=== PATIENT | male | born 1990 | race American Indian/Alaskan Native ===

== ENCOUNTER 2017-03-27 14:59 | Emergency (ER) | payer SELFPAY ==
--- NOTE | 2017-03-27 15:41 | Emergency Department Report ---
Stated Complaint: KIDNEY PAIN Time Seen by Provider: 03/27/17 15:36 - HPI History of Present Illness: PT c/o genevieve back pain x 6 days. PT states his father has a hx of kidney stones - ROS Review of Systems: + hematuria + back pain + nausea - vomiting - Exam Physical Exam: PT looks well, non toxic. + R cva tenderness MSE screening note: Focused history and physical exam performed. Due to findings the following was ordered: labs ED Disposition for MSE Condition: Stable
[2017-03-27 16:25] LABS: Basophils % (Auto) 0.7 % (0.0-1.8); Eosinophils % (Auto) 1.9 % (0.0-4.3); Hematocrit 38.1 % (35.5-45.6); Mean Corpuscular HGB Conc 34 % (32-34); Mean Corpuscular Hemoglobin 29 pg (28-32); Mean Corpuscular Volume 86 fl (84-94); Platelet Count 224 K/mm3 (140-440); Red Blood Count 4.45 M/mm3 (3.65-5.03); Red Cell Distribution Width 12.9 % (13.2-15.2); White Blood Count 5.8 K/mm3 (4.5-11.0)
[2017-03-27 16:49] LABS: Bilirubin,Urine NEG (Negative); Blood,Urine NEG (Negative); Ketones,Urine NEG (Negative); Leukocyte Esterase,Urine SM (Negative); Nitrite,Urine NEG (Negative); Protein,Urine <15 mg/dL mg/dL (Negative); Urobilinogen,Urine < 2.0 mg/dL (<2.0)
[2017-03-27 16:49] LABS: Alanine Aminotransferase 19 units/L (7-56); Albumin 4.1 g/dL (3.9-5); Albumin/Globulin Ratio 1.1 %; Alkaline Phosphatase 51 units/L (35-129); Anion Gap 19 mmol/L; Blood Urea Nitrogen 8 mg/dL (9-20); Calcium 9.2 mg/dL (8.4-10.2); Carbon Dioxide 27 mmol/L (22-30); Chloride 99.8 mmol/L (98-107); Creatine Kinase 143 units/L (55-170); Glucose 111 mg/dL (75-100); Potassium 3.8 mmol/L (3.6-5.0); Sodium 142 mmol/L (137-145); Total Protein 7.9 g/dL (6.3-8.2)
--- NOTE | 2017-03-27 18:53 | Cat Scan Report ---
FINAL REPORT EXAM: CT ABDOMEN PELVIS WO CON HISTORY: R flank pain, increased rbc in ua TECHNIQUE: Helical CT scan through the abdomen and pelvis without contrast. Images are reconstructed in the sagittal and coronal planes. PRIORS: None. FINDINGS: Solid organ and bowel evaluation is limited without intravenous contrast. Bowel evaluation is limited without oral contrast. The lung bases are clear. The liver, gallbladder, pancreas, spleen and adrenal glands appear normal. The left kidney appears normal. The right kidney appears mildly swollen. There is no hydronephrosis or urolithiasis. There is a phlebolith in the left true pelvis. The pelvic organs appear grossly normal. The stomach appears grossly within normal limits. There are no abnormally dilated loops of bowel or acute inflammatory changes. There is mild sigmoid diverticulosis without evidence of acute diverticulitis. The abdominal aorta has a normal diameter. The bones and subcutaneous soft tissues are unremarkable for age. IMPRESSION: 1. The right kidney appears mildly swollen. This may be due to pyelonephritis. There is no hydronephrosis or urolithiasis. 2. Mild sigmoid diverticulosis without evidence of acute diverticulitis
[2017-03-27 21:42] VITALS: BP 123/76
[2017-03-27] MEDS ORDERED: ZOFRAN IV ONE (21:48)
[2017-03-27] MEDS ORDERED: MORPHINE IV ONE (21:48)
[2017-03-27] MEDS ORDERED: TORADOL IV ONE (21:49)
--- NOTE | 2017-03-27 21:59 | Emergency Department Report ---
HPI - General Chief Complaint: Urogenital-Male Time Seen by Provider: 03/27/17 15:36 - HPI HPI: [place] 27 The patient is a 26-year-old male presenting with a chief complaint of bilateral flank pain. The patient states his symptoms began 6 days ago with pain in bilateral flanks. Patient states he tried to drink more water to see if that would help but his pain did not change. Patient describes pain as sharp and burning in bilateral flanks and increases with any type of movement. Patient admits to nausea at one point but denies vomiting. Patient denies fever or dysuria. The patient states today he noticed a small amount of blood in his urine. The patient currently gives his pain a score of 9/10. 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 does not recall any precipitating events events leading to his back pain Location: Bilateral flank Duration: 6 days Quality: Sharp and burning Severity: 9/10 Modifying factors: [see above] Context: [see above] Mode of transportation: [not driving] ED Past Medical Hx - Past Medical History Previous Medical History?: No - Surgical History Past Surgical History?: No - Family History Family history: no significant - Social History Smoking Status: Current Every Day Smoker (1/3 pack per day) Substance Use Type: None (denies illicit drug use), Alcohol (occasional) - Medications Home Medications: Home Medications Medication Instructions Recorded Confirmed Last Taken Type Naphazoline HCl/Pheniramine 10 ml OP BID #1 bottle 02/12/15 Unknown Rx [Naphcon-A Eye Drops] Ciprofloxacin HCl [Ciprofloxacin 500 mg PO Q12H #14 tab 03/27/17 Unknown Rx TAB] Cyclobenzaprine [Flexeril] 10 mg PO TID PRN #20 tablet 03/27/17 Unknown Rx HYDROcodone/APAP 5-325 [[place] 1 - 2 each PO Q6HR PRN #10 tablet 03/27/17 Unknown Rx 5/325] Ibuprofen [Motrin 800 MG tab] 800 mg PO Q8HR PRN #20 tablet 03/27/17 Unknown Rx Promethazine [Phenergan TAB] 25 mg PO Q6HR PRN #20 tab 03/27/17 Unknown Rx ED Review of Systems ROS: Stated complaint: KIDNEY PAIN Other details as noted in HPI Comment: All other systems reviewed and negative Constitutional: denies: chills, fever Eyes: denies: eye pain, eye discharge, vision change ENT: denies: ear pain, throat pain Respiratory: denies: cough, shortness of breath, wheezing Cardiovascular: denies: chest pain, palpitations Endocrine: no symptoms reported Gastrointestinal: nausea. denies: vomiting Genitourinary: hematuria. denies: dysuria Musculoskeletal: back pain, myalgia Skin: denies: rash, lesions Neurological: denies: headache, weakness, paresthesias Psychiatric: denies: anxiety, depression Hematological/Lymphatic: denies: easy bleeding, easy bruising Physical Exam - Physical Exam Vital Signs: Vital Signs 03/27/17 03/27/17 03/27/17 15:35 21:36 21:42 Temperature 97.9 F 97.4 F L Pulse Rate 77 75 Respiratory 16 18 Rate Blood Pressure 133/64 123/76 O2 Sat by Pulse 100 Oximetry 03/27/17 21:45 Temperature Pulse Rate Respiratory 18 Rate Blood Pressure O2 Sat by Pulse 100 Oximetry Physical Exam: GENERAL: The patient is well-developed well-nourished male lying on stretcher not appearing to be in acute distress. [] HEENT: Normocephalic. Atraumatic. Extraocular motions are intact. Patient has moist mucous membranes. NECK: Supple. No meningitic signs are noted. Trachea midline CHEST/LUNGS: Clear to auscultation. There is no respiratory distress noted. HEART/CARDIOVASCULAR: Regular. There is no tachycardia. There is no gallop rub or murmur. ABDOMEN: Abdomen is soft, with diffuse discomfort to palpation. No rebound or guarding. Patient has normal bowel sounds. There is no abdominal distention. SKIN: There is no rash. There is no edema. There is no diaphoresis. NEURO: The patient is awake, alert, and oriented. The patient is cooperative. The patient has normal speech MUSCULOSKELETAL: There is no evidence of acute injury. There is tenderness along bilateral flanks. There is no axial step off ED Course Vital Signs 03/27/17 03/27/17 03/27/17 15:35 21:36 21:42 Temperature 97.9 F 97.4 F L Pulse Rate 77 75 Respiratory 16 18 Rate Blood Pressure 133/64 123/76 O2 Sat by Pulse 100 Oximetry 03/27/17 21:45 Temperature Pulse Rate Respiratory 18 Rate Blood Pressure O2 Sat by Pulse 100 Oximetry ED Medical Decision Making - Lab Data Result diagrams: 03/27/17 15:44 03/27/17 15:44 Laboratory Tests 03/27/17 03/27/17 03/27/17 15:44 15:44 16:26 WBC 5.8 RBC 4.45 Hgb 13.0 Hct 38.1 MCV 86 MCH 29 MCHC 34 RDW 12.9 L Plt Count 224 Lymph % (Auto) 28.6 Swain % (Auto) 12.7 H Eos % (Auto) 1.9 Baso % (Auto) 0.7 Lymph # 1.7 Swain # 0.7 Eos # 0.1 Baso # 0.0 Seg Neutrophils % 56.1 Seg Neutrophils # 3.2 Sodium 142 Potassium 3.8 Chloride 99.8 Carbon Dioxide 27 Anion Gap 19 BUN 8 L Creatinine 0.8 Estimated GFR > 60 BUN/Creatinine Ratio 10.00 Glucose 111 H Calcium 9.2 Total Bilirubin 0.30 AST 18 ALT 19 Alkaline Phosphatase 51 Total Creatine Kinase 143 Total Protein 7.9 Albumin 4.1 Albumin/Globulin Ratio 1.1 Urine Color Yellow Urine Turbidity Clear Urine pH 6.0 Ur Specific [place] 1.008 Urine Protein <15 mg/dl Urine Glucose (UA) Neg Urine Ketones Neg Urine Blood Neg Urine Nitrite Neg Urine Bilirubin Neg Urine Urobilinogen < 2.0 Ur Leukocyte Esterase Sm Urine WBC (Auto) 2.0 Urine RBC (Auto) 4.0 - Radiology Data Radiology results: report reviewed (CT abdomen and pelvis), image reviewed (CT abdomen and pelvis) CT abdomen and pelvis (read by radiologist) (-the right kidney appears mildly swollen. This may be due to pyelonephritis. There is no hydronephrosis or urolithiasis. All sigmoid diverticulosis without evidence of acute diverticulitis. There are no abnormally dilated loops of bowel or acute inflammatory changes. - Differential Diagnosis renal colic, pyelonephritis, rhabdomyolysis, lumbar radiculopathy, muscle s Critical care attestation.: If time is entered above; I have spent that time in minutes in the direct care of this critically ill patient, excluding procedure time. ED Disposition Clinical Impression: Back pain Disposition: DC-01 TO HOME OR SELFCARE Is pt being admited?: No Does the pt Need Aspirin: No Condition: Stable Additional Instructions: Return to the emergency department immediately should you develop worsening symptoms, fever, inability to tolerate food or liquid or any other concerns. Prescriptions: Ciprofloxacin HCl [Ciprofloxacin TAB] 500 mg PO Q12H #14 tab Cyclobenzaprine [Flexeril] 10 mg PO TID PRN #20 tablet PRN Reason: Muscle Spasm HYDROcodone/APAP 5-325 [[place] 5/325] 1 - 2 each PO Q6HR PRN #10 tablet PRN Reason: Pain Ibuprofen [Motrin 800 MG tab] 800 mg PO Q8HR PRN #20 tablet PRN Reason: Pain Promethazine [Phenergan TAB] 25 mg PO Q6HR PRN #20 tab PRN Reason: Nausea Referrals: DESTIN BOWIE MD [Staff Physician] - 3-5 Days PONCHO RODRIGUEZ MD [Staff Physician] - 3-5 Days Time of Disposition: 22:09
== END 2017-03-27 22:43 | disposition home or self-care (01) ==
LOC: ED 14:59
DX: M54.9 Dorsalgia, unspecified (principal); F17.200 Nicotine dependence, unspecified, uncomplicated; R10.9 Unspecified abdominal pain
CPT/HCPCS: 36415; 74176; 80053; 81001; 82550; 85025; 96374; 96375; 99284; J1885; J2270; J2405

== ENCOUNTER 2019-01-23 12:31 | Emergency (ER) | payer OTHER ==
[2019-01-23 12:52] VITALS: BP 131/72
--- NOTE | 2019-01-23 12:52 | Event Note ---
ED Screening Note Date of service: 01/23/19 Time: 12:51 ED Screening Note: 28 y/o male comes in for nausea/vomiting and diarrhea started this morning. This initial assessment/diagnostic orders/clinical plan/treatment(s) is/are subject to change based on patients health status, clinical progression and re- assessment by fellow clinical providers in the ED. Further treatment and workup at subsequent clinical providers discretion. Patient/guardian urged not to elope from the ED as their condition may be serious if not clinically assessed and managed. Initial orders include:
[2019-01-23] MEDS ORDERED: BENTYL IM ONE (14:12)
[2019-01-23] MEDS ORDERED: ZOFRAN IV ONE (14:12)
[2019-01-23] MEDS ORDERED: NACL 0.9% 1000 ML 1,000 ML IV ONE (14:12)
[2019-01-23] MEDS ORDERED: PROTONIX IV ONE (14:13)
--- NOTE | 2019-01-23 14:31 | Emergency Department Report ---
ED N/V/D HPI - General Chief complaint: Nausea/Vomiting/Diarrhea Stated complaint: POSS FOOD POISION/VOMIT BLOOD Time Seen by Provider: 01/23/19 13:51 Source: patient Mode of arrival: Ambulatory Limitations: No Limitations - History of Present Illness Initial comments: Patient is a 28-year-old male who presents to the emergency room with complaints of nausea, vomiting, diarrhea that began at 7 AM this morning. He states that earlier this morning he ate at [employer] and began to feel sick a few hours later. He has associated abdominal cramping. He is able to tolerate PO intake. He denies any blood in the stool or melena. He states he is a smoker. He does not report any urinary symptoms. Denies any past medical history or allergies medications. - Related Data Previous Rx's Medication Instructions Recorded Last Taken Type Naphazoline HCl/Pheniramine 10 ml OP BID #1 bottle 02/12/15 Unknown Rx [Naphcon-A Eye Drops] Ciprofloxacin HCl [Ciprofloxacin 500 mg PO Q12H #14 tab 03/27/17 Unknown Rx TAB] Cyclobenzaprine [Flexeril] 10 mg PO TID PRN #20 tablet 03/27/17 Unknown Rx HYDROcodone/APAP 5-325 [[place] 1 - 2 each PO Q6HR PRN #10 tablet 03/27/17 Unknown Rx 5/325] Ibuprofen [Motrin 800 MG tab] 800 mg PO Q8HR PRN #20 tablet 03/27/17 Unknown Rx Promethazine [Phenergan TAB] 25 mg PO Q6HR PRN #20 tab 03/27/17 Unknown Rx Allergies Allergy/AdvReac Type Severity Reaction Status Date / Time No Known Allergies Allergy Unverified 02/11/15 23:34 ED Review of Systems ROS: Stated complaint: POSS FOOD POISION/VOMIT BLOOD Other details as noted in HPI Comment: All other systems reviewed and negative ED Past Medical Hx - Past Medical History Previous Medical History?: No - Surgical History Past Surgical History?: Yes Additional Surgical History: Testicular sx as a child - Social History Smoking Status: Current Every Day Smoker Substance Use Type: None - Medications Home Medications: Home Medications Medication Instructions Recorded Confirmed Last Taken Type Naphazoline HCl/Pheniramine 10 ml OP BID #1 bottle 02/12/15 Unknown Rx [Naphcon-A Eye Drops] Ciprofloxacin HCl [Ciprofloxacin 500 mg PO Q12H #14 tab 03/27/17 Unknown Rx TAB] Cyclobenzaprine [Flexeril] 10 mg PO TID PRN #20 tablet 03/27/17 Unknown Rx HYDROcodone/APAP 5-325 [[place] 1 - 2 each PO Q6HR PRN #10 tablet 03/27/17 Unknown Rx 5/325] Ibuprofen [Motrin 800 MG tab] 800 mg PO Q8HR PRN #20 tablet 03/27/17 Unknown Rx Promethazine [Phenergan TAB] 25 mg PO Q6HR PRN #20 tab 03/27/17 Unknown Rx ED Physical Exam - General Limitations: No Limitations General appearance: alert, in no apparent distress - Head Head exam: Present: atraumatic, normocephalic - Eye Eye exam: Present: normal appearance - ENT ENT exam: Present: mucous membranes moist - Respiratory Respiratory exam: Present: normal lung sounds bilaterally. Absent: respiratory distress, wheezes, rales, rhonchi, stridor, chest wall tenderness, accessory muscle use, decreased breath sounds, prolonged expiratory - Cardiovascular Cardiovascular Exam: Present: regular rate, normal rhythm, normal heart sounds. Absent: systolic murmur, diastolic murmur, rubs, gallop - GI/Abdominal GI/Abdominal exam: Present: soft, normal bowel sounds. Absent: distended, tenderness, guarding, rebound, rigid - Neurological Exam Neurological exam: Present: alert, oriented X3 - Psychiatric Psychiatric exam: Present: normal affect, normal mood - Skin Skin exam: Present: warm, dry, intact ED Course Vital Signs 01/23/19 12:50 Temperature 98.5 F Pulse Rate 73 Respiratory 18 Rate Blood Pressure 131/72 O2 Sat by Pulse 100 Oximetry ED Medical Decision Making - Medical Decision Making Patient is a 28-year-old male who presents to the emergency room with complaints of nausea, vomiting, diarrhea that began at 7 AM this morning. He states that earlier this morning he ate at [employer] and began to feel sick a few hours later. He has associated abdominal cramping. He is able to tolerate PO intake. He denies any blood in the stool or melena. He states he is a smoker. He does not report any urinary symptoms. Denies any past medical history or allergies medications. vitals are normal. advised pt that he would need to have lab work performed and we would give him IV medications to treat his symptoms. pt advised nurse that he had to be at work at 4 PM and he could not stay. The patient signed out against medical advice. GUNNAR mata discussed with pt the risks associated with leaving against medical advice including , disability, paralysis, permanent loss of quality of life. pt signed AMA form. Critical care attestation.: If time is entered above; I have spent that time in minutes in the direct care of this critically ill patient, excluding procedure time. ED Disposition Clinical Impression: Nausea vomiting and diarrhea, Abdominal cramping Disposition: DC-07 LEFT AGAINST MED ADVICE Is pt being admited?: No Does the pt Need Aspirin: No Condition: Undetermined Referrals: GAY SANCHEZ MD [Primary Care Provider] - 2-3 Days Forms: AMA Form
== END 2019-01-23 14:28 | disposition left against medical advice (07) ==
LOC: ED 12:31
DX: R11.2 Nausea with vomiting, unspecified (principal); R19.7 Diarrhea, unspecified; R10.9 Unspecified abdominal pain; F17.200 Nicotine dependence, unspecified, uncomplicated; Z79.899 Other long term (current) drug therapy